=== PATIENT | female | born 1995 | race African-American/Black ===

== ENCOUNTER 2017-05-02 02:57 | Emergency (ER) | payer MEDICAID ==
[~2017-05-02] VITALS: Ht 154.9 cm; Wt 103.9 kg
[2017-05-02 03:31] LABS: Basophils # (auto) 0 uL; Eosinophils # (auto) 0.1 uL; Eosinophils % (auto) 0.6 % (0.0-7.0); Lymphocytes # (auto) 1.9 uL; Mean Corpuscular Hemoglobin 22.6 pg (28.0-32.0); Monocytes # (auto) 0.6 uL; Nucleated Red Blood Cells % 0.1 %; White Blood Cell 8.5 10^3/uL (4.4-10.8)
[2017-05-02 03:33] LABS: Basophils % (auto) 0.2 % (0.0-2.0); Hematocrit 37.9 % (36.0-46.0); Lymphocytes % (auto) 22.4 % (10.0-50.0); Mean Corpuscular Hgb Conc. 31.6 g/dL (32.0-36.0); Mean Corpuscular Volume 71.6 fL (80.0-100.0); Mean Platelet Volume 8.4 fL (6.9-10.8); Neutrophils # (auto) 5.9 uL; Neutrophils % (auto) 69.8 % (37.0-80.0); Platelet Count (auto) 286 10^3/uL (140-450)
[2017-05-02 03:45] LABS: INR 1.07 (0.9-1.15); Partial Thromboplastin Time 28.1 sec (22.64-33.71); Prothrombin Time 11.7 sec (9.37-12.3)
[2017-05-02 03:53] LABS: Albumin 3.2 g/dL (3.4-5.0); Alkaline Phosphatase 76 U/L (45-117); Anion Gap 8 (5-15); Aspartate Aminotransferase 19 U/L (15-37); BUN/Creatinine Ratio 8.8; Bilirubin, Total < 0.1 mg/dL (0.2-1.0); Blood Urea Nitrogen 6 mg/dL (7-18); Calcium 9.1 mg/dL (8.5-10.1); Carbon Dioxide 25 mmol/L (21-32); Chloride 105 mmol/L (98-107); GFR African American 138 mL/min; GFR Non-African American 114 mL/min; Glucose 71 mg/dL (74-106); Potassium 3.8 mmol/L (3.5-5.1); Sodium 138 mmol/L (136-145); Total Protein 7.9 g/dL (6.4-8.2)
[2017-05-02 06:59] VITALS: BP 103/72
== END 2017-05-02 07:46 | disposition home or self-care (01) ==
LOC: EDBD 02:57 → ER 03:03
DX: O46.91 Antepartum hemorrhage, unspecified, first trimester (principal); O99.331 Smoking (tobacco) complicating pregnancy, first trimester; F17.210 Nicotine dependence, cigarettes, uncomplicated; Z34.91 Encounter for supervision of normal pregnancy, unspecified, first trimester; Z3A.08 8 weeks gestation of pregnancy
CPT/HCPCS: 36415; 76805; 80053; 84702; 85025; 85610; 85730